=== PATIENT | male | born 1980 | race African-American/Black ===

== ENCOUNTER 2017-09-05 21:21 | Emergency (ER) | payer OTHER ==
[~2017-09-05] VITALS: Ht 170.2 cm; Wt 99.8 kg
[~2017-09-05 21:21] MED LIST: AUGMENTIN 875875 MG PO; KEFLEX500 MG PO; NOHOMEMEDICATIONS; NORCO 5-325 TA1 EACH PO; ONDANSETRON HCL4 M2 PO; PRILOSEC40 MG PO; TESSALON PERLE100 MG PO; ZOFRAN ODT4 MG PO
[2017-09-05] MEDS ORDERED: MOBIC15 MG PO (22:45)
[2017-09-05 23:24] VITALS: BP 129/90
== END 2017-09-05 23:25 | disposition home or self-care (01) ==
LOC: ER 21:21
DX: S29.012A Strain of muscle and tendon of back wall of thorax, initial encounter (principal); S80.02XA Contusion of left knee, initial encounter; V49.09XA Driver injured in collision with other motor vehicles in nontraffic accident, initial encounter; Y93.89 Activity, other specified; Y92.89 Other specified places as the place of occurrence of the external cause; Y99.8 Other external cause status

== ENCOUNTER 2020-06-20 14:31 | Inpatient (IN) | payer OTHER ==
[~2020-06-20] VITALS: Ht 172.7 cm; Wt 107.5 kg
[~2020-06-20 14:31] MED LIST changes: +MOBIC15 MG PO
[2020-06-20 14:52] VITALS: BP 129/89
[2020-06-20 15:42] LABS: ABSOLUTE NEUTROPHILS 7.5 thou/uL (1.4-8.2); BASOPHILS 0.7 % (0.0-2.0); EOSINOPHILS 0.5 % (0.0-3.0); HEMATOCRIT 47.3 % (42.0-52.0); HEMOGLOBIN 15.7 gm/dL (14.0-18.0); LYMPHOCYTES 14.4 % (24.0-44.0); MCH 31.4 pg (26.0-34.0); MCHC 33.2 g/dL (28.0-37.0); MCV 94.5 fL (80.0-100.0); MONOCYTES 9.1 % (1.0-8.0); PLATELET COUNT 422 thou/uL (150-400); POLYS 75.3 % (36.0-66.0); RDW 14.1 % (10.5-14.5); WBC 9.9 thou/uL (4.0-11.0)
[2020-06-20 15:49] LABS: CALCIUM 9.4 mg/dL (8.5-10.1); CREATININE 1.2 mg/dL (0.7-1.3); POTASSIUM 3.8 mmol/L (3.5-5.1)
[2020-06-20 18:01] VITALS: BP 139/94
--- NOTE | 2020-06-20 18:13 | NUR ---
ATTEMPTED TO CALL REPORT TO UNIT, UNSUCCESSFUL AT THIS TIME.
[2020-06-20 18:26] VITALS: BP 118/81
[2020-06-20 18:52] VITALS: BP 148/97
--- NOTE | 2020-06-21 02:06 | NUR ---
PT WAS ADMITED TO THE UNIT FROM THE ER IN A STABLE CONDITION.R ARM SWOLLEN IMMOBILIZED WITH A SPLINT.ORTHOPEDIC PHYSICIAN HERE TO SEE PT,NO SURGERY NECESSARY AT THIS TIME DUE TO SWELLING.PT WILL UNDERGO SURGICAL PROCEDURE WHEN THE SWELLING COMES DOWN.PT AWARE.ADMISSION HX,EDUCATION AND ASSESSMENT COMPLETED.PT WILL LIKELY GO HOME TODAY.CALL LIGHT WITHIN REACH.
[2020-06-21 03:59] VITALS: BP 134/81
[2020-06-21 08:00] VITALS: BP 132/80
--- NOTE | 2020-06-21 08:47 | NUR ---
Assumed care of pt at 0700. Pt a&ox4. Splint on right upper extremity in place. Pain controlled with prn pain meds. Pt requests medication for a headache this am. Provider notified. New orders noted. No surgery until swelling goes down. Cap refill < 3 seconds. Call light within reach. Will continue to monitor.
--- NOTE | 2020-06-21 10:32 | NUR ---
ASSESSMENT: CM REVIEWED CHART AND SPOKE WITH PT. PT IS S/P MEDIAL EPICONDYLE FX AND ARM IS IN SPLINT. PT REPORTS HE GOT INJURED ON HIS JOB AND REPORTS WORKING WITH [employer] CM ASKED PT IF HE HAD BEEN IN CONTACT WITH HIS HR OR HAD ANY CONTACT INFO FOR WORK COMP AND PT REPORTS HE DOES NOT HAVE ANY OF THAT AT THIS TIME IT WAS AN EMERGENCY. CM PROVIDED PT WITH MAIN CONTACT NUMBER FOR CASE MANAGEMENT IF HE RECEIVES ANY OF THAT INFO. PT REPORTS LIVING IN A HOME WITH HIS FAMILY AND CHILDREN. PT REPORTS HE IS FULLY INDEPENDENT WITH ADLS AND AMBULATION. PT STATES HE WAS TOLD HE WILL GO HOME AND THEN COME BACK FOR SURGERY ONCE SWELLING IS DOWN. PT DENIES HAVING ANY NEEDS FROM CM. CM NOTIFIED UR RN OF LIKELY WORK COMP CASE. CM WILL CONTINUE TO FOLLOW.
[2020-06-21 13:21] VITALS: BP 132/80
== END 2020-06-21 14:07 | disposition home or self-care (01) | DRG 563 ==
LOC: ER 14:31 → EROBS 18:04 → 4S 18:25
PROVIDERS: Nurse Practitioner; ADMIT Surgery; ATTEND Surgery
DX: S42.401A Unspecified fracture of lower end of right humerus, initial encounter for closed fracture (principal); Z79.899 Other long term (current) drug therapy; Z20.822 Contact with and (suspected) exposure to COVID-19; X58.XXXA Exposure to other specified factors, initial encounter; Y93.89 Activity, other specified; Y92.89 Other specified places as the place of occurrence of the external cause; Y99.8 Other external cause status
CPT/HCPCS: 10100

== ENCOUNTER → 2020-07-04 | Outpatient (CLI) | payer OTHER ==
[~2020-07-04] MED LIST changes: +HYDROCODON-ACE1 EAC7 PO
== END ==
LOC: LAB 09:41
PROVIDERS: ATTEND Orthopaedic Surgery
DX: Z01.812 Encounter for preprocedural laboratory examination (principal); Z20.822 Contact with and (suspected) exposure to COVID-19

== ENCOUNTER 2020-07-08 06:05 | Day surgery (SDC) | payer OTHER ==
[~2020-07-08] VITALS: Ht 172.7 cm; Wt 107.5 kg
[2020-07-08 07:06] VITALS: BP 133/93
[2020-07-08 09:20] VITALS: BP 133/93
--- NOTE | 2020-08-01 10:45 | O ---
[facility] [place] [address] OPERATIVE REPORT Name: CARL VALVERDE Room #: DEP [facility] MPortia.#: [id number] Admission: 07/08/20 Attend Phys: Cesar Walker Discharge: 07/08/20 Date of : 80 Report #: [id number] THIS REPORT FOR: cc: FAM - No family physician/PCP FAM - No family physician/PCP Cesar Walker DO ~ DATE OF SERVICE: 07/08/2020 PROCEDURE: Open reduction and internal fixation, right medial epicondylar avulsion fracture. POSTOPERATIVE DIAGNOSIS: Right arm crush injury with avulsion, right medial epicondyle. ANESTHESIA: General. POSITION: Supine. BLOOD LOSS: Less than 100 mL. TOURNIQUET TIME: See OR record. Gross findings were consistent with a comminuted medial epicondyle avulsion fracture with medial flexor mass avulsion of approximately 3 cm. IMPLANTS: Arthrex SwiveLocks were used x 2. DESCRIPTION OF PROCEDURE: The patient was seen in the preoperative holding area. Site was marked, consent was verified. He received perioperative antibiotics and was wheeled back to the operating room, laid supine on the operative table. Department of Anesthesia administered general anesthetic and maintained control and monitoring of the airway and vital signs. At this point, a tourniquet was placed high on the upper arm. Sterile prep and drape was performed of the right upper extremity including the hand. At this point, a 9 cm curvilinear incision was made over the medial epicondyle extending distally. Soft tissue dissection was carried out sharply. Posterior full thickness flap was created. The ulnar nerve was identified proximally and in situ decompressed down into its insertion into the medial musculature. At this point, blunt dissection was carried out to the traumatic area of the medial epicondyle and to the avulsed wad of musculature. Multiple bony fragments were removed. Copious irrigation was run through the area and it was suctioned dry. With the ulnar nerve protected, 2 whipstitches were placed through the avulsed tendon, removing further bony debris. At this point, the musculotendinous junction was mobilized up to the medial epicondyle. A distal SwiveLock was placed distal in the medial epicondyle and deployed tensioning the medial epicondyle back to its footprint. [address] [address] OPERATIVE REPORT Name: CARL VALVERDE WESTMINSTER Room #: DEP [facility] M.R.#: [id number] Admission: 07/08/20 Attend Phys: Cesar Walker Discharge: 07/08/20 Date of : 80 Report #: [id number] A second SwiveLock was used to further stabilize the tendinous insertion to the medial epicondyle. At this point, copious irrigation was run through the wound and it was patted dry. The ulnar nerve was further inspected and found to have no significant injury. The surgical site was then lavaged and patted dry. A layered closure was performed. A large bulky dressing and long arm splint were applied and the tourniquet was deflated. Anesthesia was reversed and the patient was transferred to postop in apparent stable condition. DISPOSITION: To PACU, stable, anticipate discharge to home based on anesthesia criteria. Prognosis is fair, although he did have some delay in getting to his surgical procedure, which may prolong his rehab. <ELECTRONICALLY SIGNED> By: Cesar Walker DO 08/01/20 1045 [id number] 1228 Cesar Walker DO /nt
== END 2020-07-08 10:30 | disposition home or self-care (01) ==
LOC: OR 06:05 → TBA 06:07 → OR 08:39
PROVIDERS: ATTEND Orthopaedic Surgery
DX: S42.441A Displaced fracture (avulsion) of medial epicondyle of right humerus, initial encounter for closed fracture (principal); M79.601 Pain in right arm; Z98.890 Other specified postprocedural states; Z79.899 Other long term (current) drug therapy; W31.89XA Contact with other specified machinery, initial encounter; Y93.89 Activity, other specified; Y92.89 Other specified places as the place of occurrence of the external cause; Y99.8 Other external cause status
CPT/HCPCS: 50010; 50101; 50386; 50417; 56525; 56530; 57178; 58505; 58506; 62110; 62900; 70005